=== PATIENT | female | born 1995 | race Caucasian/White ===

== ENCOUNTER 2022-09-29 10:20 | Emergency (ER) | payer OTHER, SELFPAY ==
[2022-09-29 10:27] VITALS: BP 112/77; PULSE 94; RESP 16; TEMP 36.6; O2SAT 98; BMI 41.5
--- NOTE | 2022-09-29 10:38 | ED_ITS ---
HPI - URI/Sore Throat General Chief Complaint: Upper Respiratory Infection Stated Complaint: SORE THROAT/ COVID + Time Seen by Provider: 09/29/22 10:31 Source: patient Limitations: no limitations History of Present Illness HPI Narrative: patient's here for evaluation of a sore throat. She tested positive for Covid approximately four days ago. She lives with her who is also healthy but he is asymptomatic. She has not received any Covid vaccines. She says she has slight nausea but no vomiting or diarrhea. She has not had exacerbation or worsening of her underlying asthmatic condition and has no chest pain. She is otherwise healthy with no substantial comorbidities. He is not scheduled to work today. MD elicited complaint: Reports sore throat; Denies fever Pertinent past history: Denies HIV Related Data Home Medications Medication Instructions Recorded Confirmed No Known Home Medications 09/29/22 09/29/22 Allergies Allergy/AdvReac Type Severity Reaction Status Date / Time No Known Drug Allergies Allergy Verified 09/29/22 10:33 Exam Constitutional Vital Signs - 24 hr 09/29/22 10:27 Temperature 97.9 F Pulse Rate [Monitor] 94 H Respiratory Rate 16 Blood Pressure [Left Arm] 112/77 Pulse Oximetry 98 Oxygen Delivery Method Room Air Common normals: no apparent distress, oriented x3 and healthy appearing HENMT Common normals: external nose normal, nasal mucous membranes and turbinates normal, moist oral mucous membranes and oropharynx normal Mouth: oral and palatal mucosa normal Throat: posterior oropharynx abnormal Other: very mild hyperemia posterior hypopharynx otherwise uvula palatal tissues are all normal Eye Common normals: conjunctivae normal Neck & C-Spine Common normals: full ROM Chest Common normals: inspection of chest normal Respiratory Common normals: normal respiratory effort, no retractions, no use of accessory muscles and clear to auscultation bilaterally Effort & inspection: able to speak in complete sentences and symmetric chest mo vement Course Vital Signs Vital signs: Vital Signs Temperature 97.9 F 09/29/22 10:27 Pulse Rate 94 H 09/29/22 10:27 Respiratory Rate 16 09/29/22 10:27 Blood Pressure 112/77 09/29/22 10:27 Pulse Oximetry 98 09/29/22 10:27 Oxygen Delivery Method Room Air 09/29/22 10:27 Temperature 97.9 F 09/29/22 10:27 Pulse Rate 94 H 09/29/22 10:27 Respiratory Rate 16 09/29/22 10:27 Blood Pressure 112/77 09/29/22 10:27 Pulse Oximetry 98 09/29/22 10:27 Oxygen Delivery Method Room Air 09/29/22 10:27 MDM - URI/Sore Throat MDM Narrative Medical decision making narrative: this is a very healthy patient with no comorbidities who is on day five of testing positive for Covid. Do not believe she is a candidate for antivirals at this stage. I did recommend a home positive [place], she already has one and it has been normal at home. Supportive care was discussed in detail Discharge Plan Discharge Chief Complaint: Upper Respiratory Infection Clinical Impression: COVID Patient Disposition: Home, Self-Care Time of Disposition Decision: 10:44 Condition: Good Prescriptions / Home Meds: No Action No Known Home Medications Instructions: COVID-19 (Coronavirus Disease 2019) (ED) Stand Alone Forms: Portal Instructions Referrals: Noman Cornell MD [Primary Care Provider] - 1 week
== END 2022-09-29 10:45 | disposition home or self-care (01) ==
PROVIDERS: Emergency Provider Emergency Medicine Emergency Medical Services; PCP Family Medicine
DX: J06.9 Acute upper respiratory infection, unspecified (principal); U07.1 COVID-19; Z28.310 Unvaccinated for COVID-19
CPT/HCPCS: 99281